=== PATIENT | male | born 1945 | race Caucasian/White ===

== ENCOUNTER 2019-10-30 15:14 | Observation (INO) | payer MEDICARE ==
[2019-10-30 15:54] LABS: #Eosinphils 0.1 thou/uL (0.0-0.7); #Lymphocytes 1.6 thou/uL (1.20-3.40); #Monocytes 0.6 thou/uL (0.11-0.59); #Neutrophils 5.8 thou/uL (1.40-6.50); %Basophils 0.6 % (0.0-1.0); %Eosinophils 1.5 % (0.0-10.0); %Lymphocytes 19.6 % (21.0-51.0); %Monocytes 7.4 % (0.0-10.0); Hemoglobin 12.6 g/dL (14.0-18.0); Mean Corpuscular HGB CONC 36.2 g/dL (32.0-36.0); Mean Corpuscular Hemoglobin 31.7 pg (27.0-31.0); Mean Corpuscular Volume 87.5 fL (78.0-98.0); Mean Platelet Volume 12.5 fL (7.4-10.4); Platelet Count 58 thou/uL (130-400); RBC Distribution Width 12.2 % (11.5-14.5); Red Blood Cell (RBC) Count 3.99 mill/uL (4.70-6.10); White Blood Cell (WBC) Count 8.2 thou/uL (4.8-10.8)
--- NOTE | 2019-10-30 15:54 | CT ---
CT Brain WO Con: 10/30/2019 3:24 PM CLINICAL HISTORY: History of left-sided facial paralysis that started at noon. IMAGING TECHNIQUE: Multiple CT images were obtained of the brain without IV contrast. COMPARISON: None. FINDINGS: Brain: No acute infarct or hemorrhage is evident. No midline shift. Ventricles: Normal. No hydrocephalus. Skull: Intact. Visualized Paranasal sinuses: Clear. Mastoid air cells:Clear. Extracranial soft tissues:Normal. IMPRESSION: No acute intracranial abnormality.
[2019-10-30 16:16] LABS: ALT (SGPT) 14 U/L (8-55); AST (SGOT) 17 U/L (5-34); Albumin 4.7 g/dL (3.4-4.8); Alkaline Phosphatase 75 U/L (40-110); Anion Gap 15 mmol/L (10-20); BUN (Urea Nitrogen) 42 mg/dL (8.4-25.7); Bilirubin, Total 0.6 mg/dL (0.2-1.2); Calc. Creatinine Clearance 0 mL/min (70-130); Calcium 10.2 mg/dL (7.8-10.44); Carbon Dioxide 25 mmol/L (23-31); Chloride 103 mmol/L (98-107); Estimated GFR-MDRD 37; Globulin 3.6 g/dL (2.4-3.5); Glucose 146 mg/dL (83-110); Potassium 5.4 mmol/L (3.5-5.1); Protein, Total 8.3 g/dL (5.8-8.1); Sodium 138 mmol/L (136-145)
--- NOTE | 2019-10-30 16:18 | RAD ---
EXAM: Chest one view: HISTORY: Left-sided facial paralysis COMPARISON: 05/12/2010 FINDINGS: Heart size: Within normal limits. Lungs: Clear of acute process. No evidence for confluent pneumonia, pleural effusion, acute edema, or pneumothorax, or other signifi cant acute process. IMPRESSION: No significant acute intrathoracic disease.
[2019-10-30] MEDS ORDERED: Ondansetron ODT 4 MG TAB SL PRN (20:00)
[2019-10-30] MEDS ORDERED: Ondansetron PF 4 MG/2 ML Vial IVP PRN ×2 (20:00→22:09)
[2019-10-30] MEDS ORDERED: Acetaminophen 325 MG TAB PO PRN ×2 (20:00→22:09)
--- NOTE | 2019-10-30 20:25 | PDOC.FPRHP ---
- History of Present Illness Chief Complaint: Facial droop History of Present Illness: Patient is a 73 yo male with PMHx of HTN, HLD, IDDM, and Colon Cancer in remission who presents with complaint of left facial droop that started at around 1200 on 10/29/2019. Patient states that he was working in his shop and he felt like sawdust entered his left eye. He suddenly noticed that he could not close his left eye and the entire left side of his face felt numb. His right eye has been occasionally tearing. He was able to eat dinner last night and noted that he was drooling a little bit but did not think anything of it. A family member who visited the patient this morning additionally noted that the patient could not smile and that the left side of his face appeared to be drooping, which prompted the patient to come to the hospital for further evaluation. Patient denies any previous history of CVA or TIA. He denies any weakness or numbness in the extremities, although he notes he has dealt with peripheral neuropathy symptoms in his hands and feet since 2010. He says he was told it was a part of the side effects from a chemotherapy he received for his colon cancer from [id number]. Patient additionally complains of some intermittent chest pain for last several weeks. He is unable to characterize the pain, stating that it is the upper left chest and goes straight through into his chest. It hurts sometimes when he presses that area but not currently. Currently not having any chest pain. ED Course: No medications given in ED. Troponin neg. CXR with no acute process. CT head negative. Labs revealed Na 138, K 5.4, BUN 42, Cr 1.81, GFR 37, Hgb 12.6 - Allergies/Adverse Reactions Allergies Allergy/AdvReac Type Severity Reaction Status Date / Time No Known Allergies Allergy Verified 10/30/19 20:19 - Home Medications Medication Instructions Recorded Confirmed Type Amlodipine Besylate [amLODIPine 10 mg PO HS 09/06/16 10/30/19 History Besylate] Atorvastatin Calcium 80 tab PO HS 09/06/16 10/30/19 History Cyanocobalamin (Vitamin B-12) 1,000 mcg PO DAILY 09/06/16 10/30/19 History [Vitamin B-12] Gabapentin 400 mg PO TID 09/06/16 10/30/19 History Hydrochlorothiazide 25 mg PO DAILY 09/06/16 10/30/19 History Insulin Detemir 100 UNITS/ML 95 unit SQ QAM 09/06/16 10/30/19 History [Levemir] Lisinopril 40 mg PO DAILY 09/06/16 10/30/19 History Insulin Detemir 100 UNITS/ML 65 units SQ QPM 04/26/17 10/30/19 History [Levemir] Alogliptin 12.5 mg PO DAILY 10/30/19 10/30/19 History Multivit-Minerals/Folic Acid 3 tab PO DAILY 10/30/19 10/30/19 History [Adult Multi Gummies] [place]-3S/DHA/EPA/Fish Oil/D3 1 drop PO BID 10/30/19 10/30/19 History [[place] Essentials Liquid] metFORMIN [Glucophage] 500 mg PO BID 10/30/19 10/30/19 History - History PMHx: HTN, HLN, IDDM, Colon Cancer (2009, 2016), Depression, Sarcoidosis PSHx: Colectomy in 2009, 2016; Hernia repair FHx: CAD, DM, RA Social: smokes 2 cigars/day - Review of Systems General: denies: fever/chills, weight/appetite/sleep changes, fatigue Eyes: reports: vision changes (blurry vision left eye) ENT: denies: nasal congestion Respiratory: denies: cough, congestion, shortness of breath Cardiovascular: denies: chest pain, palpitation, edema Gastrointestinal: denies: nausea, vomiting, diarrhea, constipation, abdominal pain Genitourinary: denies: dysuria Skin: denies: rashes, lesions, itching Musculoskeletal: denies: pain, swelling Neurological: reports: numbness. denies: syncope, weakness - Vital signs BP: 183/81 HR: 95 RR: 16 Tmax: 98.5F Pox: 98% on RA Wt: 87 kg - Physical Exam Constitutional: NAD, awake, alert and oriented, well developed HEENT: normocephalic and atraumatic, EOMI, conjunctiva clear, no scleral icterus , grossly normal vision, grossly normal hearing, MMM -HEENT: left eye open, patient unable to close eye tearing present from left eye horizontal nystagmus present to both left and right unable to raise left eye brow face generally appears asymmetrical with left side drooping. When smiling the left side of the face does not move. Disappearance of wrinkles on left forehead. No apparent rashes or lesions. Gross sensation to pressure intact bilateral face. Neck: supple Chest: no-tender to palpation, no lesions Heart: RRR, normal S1/S2, no murmurs/rubs/gallops, pulses present, no edema Lungs: CTAB, no respiratory distress, good air movement, no rales/rhonchi, no wheezing Abdomen: soft, non-tender, bowel sounds present Musculoskeletal: normal structure, normal tone, ROM grossly normal -Neurological: see HEENT exam above. Strength 5/5 in extremities. Gross sensation intact to light and deep touch. Skin: no rash/lesions, good turgor Heme/Lymphatic: no unusual bruising or bleeding Psychiatric: normal mood and affect, intact recent and remote memory FMR H&P: Results - Labs Result Diagrams: 10/31/19 04:16 10/31/19 04:16 Lab results: WBC 8.2 thou/uL (4.8-10.8) 10/30/19 15:31 Hgb 12.6 g/dL (14.0-18.0) L 10/30/19 15:31 Hct 34.9 % (42.0-52.0) L 10/30/19 15:31 MCV 87.5 fL (78.0-98.0) 10/30/19 15:31 Plt Count 58 thou/uL (130-400) L 10/30/19 15:31 Neutrophils % 71.0 % (42.0-75.0) 10/30/19 15:31 Sodium 138 mmol/L (136-145) 10/30/19 15:30 Potassium 5.4 mmol/L (3.5-5.1) H 10/30/19 15:30 Chloride 103 mmol/L (98-107) 10/30/19 15:30 Carbon Dioxide 25 mmol/L (23-31) 10/30/19 15:30 BUN 42 mg/dL (8.4-25.7) H 10/30/19 15:30 Creatinine 1.81 mg/dL (0.7-1.3) H 10/30/19 15:30 Glucose 146 mg/dL (83-110) H 10/30/19 15:30 Calcium 10.2 mg/dL (7.8-10.44) 10/30/19 15:30 Total Bilirubin 0.6 mg/dL (0.2-1.2) 10/30/19 15:30 AST 17 U/L (5-34) 10/30/19 15:30 ALT 14 U/L (8-55) 10/30/19 15:30 Alkaline Phosphatase 75 U/L (40-110) 10/30/19 15:30 Serum Total Protein 8.3 g/dL (5.8-8.1) H 10/30/19 15:30 Albumin 4.7 g/dL (3.4-4.8) 10/30/19 15:30 FMR H&P: A/P - Problem List (1) Ricketts's palsy Current Visit: Yes Status: Acute Code(s): G51.0 - RICKETTS'S PALSY (2) Acute kidney injury superimposed on CKD Current Visit: Yes Status: Acute Code(s): N17.9 - ACUTE KIDNEY FAILURE, UNSPECIFIED; N18.9 - CHRONIC KIDNEY DISEASE, UNSPECIFIED (3) Anemia Current Visit: Yes Status: Chronic Code(s): D64.9 - ANEMIA, UNSPECIFIED Qualifiers: Anemia type: unspecified type Qualified Code(s): D64.9 - Anemia, unspecified (4) Hyperkalemia Current Visit: Yes Status: Acute Code(s): E87.5 - HYPERKALEMIA (5) Peripheral neuropathy Current Visit: Yes Status: Chronic Code(s): G62.9 - POLYNEUROPATHY, UNSPECIFIED Qualifiers: 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 Qualified Code(s): G62.2 - Polyneuropathy due to other toxic agents (6) Hypertension Current Visit: Yes Status: Chronic Code(s): I10 - ESSENTIAL (PRIMARY) HYPERTENSION Qualifiers: Hypertension type: unspecified Qualified Code(s): I10 - Essential (primary ) hypertension - Plan Patient is a 73 yo male who presents with left facial droop: #Ricketts's Palsy, suspected -high suspicion for Ricketts's palsy given involvement of entire left side of face including forehead, visible asymmetry on initial exam with unable to close left eye -will need to r/o CVA given risk factors of HLD, DM, HTN, smoking -CT head negative, will obtain MRI in AM -House-Brackmann classification of severe dysfunction for Ricketts's Palsy -will start Prednisone 80 mg/day, will need 7 day course -start Valacyclovir 1000 mg/day, will need 7 day course -artificial tear eye drops TID and eye gel at bedtime #Atypical Chest Pain -low suspicion for cardiac origin at this time -not reproducible on exam -Troponin 0.01 -EKG in ER NSR with no ST changes -HEART score of 4 for >3 risk factors and age -consider outpatient stress test #Hypertension -continue home meds #Hyperkalemia -initial K 5.4, will continue to monitor -repeat CMP in AM #Peripheral Neuropathy -aware, longstanding numbness in hands & feet that started after chemotherapy treatments in 2010 -continue home meds #IDDM -continue home insulin -place on SSI while in hospital -diabetes hyperglycemia protocol in place #HLD -continue home meds Diet: Heart Healthy VTE: SCDs, Lovenox 30 Code status: FULL Dispo: Stable, admit to observation on stroke unit. Continue to monitor, start on steroids and valacyclovir. MRI in AM. Anticipate LOS <48 hrs. FMR H&P: Upper Level - Plan Date/Time: 10/30/192024 IHeidi DO, have evaluated this patient and agree with findings/plan as outlined by purchasing intern resident. Pertinent changes/additions are listed here. Pt is a 73 yo M/F with PMH of DM, neuropathy, umbilical hernia, hx of colon cancer, HTN, tobacco use (1-2cigars per day) presenting for L eye droop and L facial droop with difficulty spitting and associated L facial numbness, onset 1200 yesterday. Also noticed some tinglining in R arm, but reports it happens occasionally so he didn't think anything of it. Denies slurred speech, weakness , confusion. Reports some L substernal CP that radiates to L shoulder blade over the last couple days. Currently not present. Dull ache that is intermittent, not associated with exertion. Denies SOB, syncope, palpitations. VS: 143/71, P79, R20, T98.3, 97%RA PE: Gen: well developed, NAD HEENT: Moist MM, no LAD, no JVD, otoscopic exam wnl b/l- TM clear with good cone Heart: RRR, no murmurs or extra sounds. Distal pulses 2+ Lungs: CTAB, no wheezing. No increased work of breathing Abd: soft, nontender, BS+, ventral hernia present- reducible Ext: no cyanosis or edema Neuro: L sided facial droop of lip, eyelid, and eyebrow, loss of wrinkles of L forehead, inability to close L eye, no tongue deviation, UE and LE sensation intact, UE and LE strength 5/5 Skin: no rashes or wounds present Psych: AOx3, normal mood Pertinent Labs/Imaging: H/H: 12.9/34.9, Plt 58, MCV [address]: no acute findings EKG: NSR, no ST changes, Left [place] Deviation A/P: CVA vs [place] Palsy -Likely [place] Palsy based off exam. House Brackmann V, will give Prednisone and Valacyclovir. -MRI tomorrow -Permissive HTN x24h -FLP, continue daily ASA. Normocytic Anemia: -Chronic, stable from previous admissions Thrombocytopenia: -has seen oncologist at [place] for this. Reports normally below 50. -continue to monitor daily, hold anticoagulation for Plt <40 -Ramu score 5 Hyperkalemia: -has hx of this 2/2 eating too many bananas. -Will give home dose insulin and recheck in AM. -EKG wnl Atypical CP: -EKG and trop wnl -no current CP -likely needs outpatient workup SAUL vs CKD: -unk to him. -FeNa pending See purchasing intern note for chronic medical conditions. DVT PPx: Lovenox GI PPx: Pepcid Code status: Full PCP: Dr. Reid Lo at the [facility] Addendum - Attending - Attending Attestation Date/Time: 10/31/19 [id number] I personally evaluated the patient and discussed the management with Dr. Carvalho and Aguilar. I agree with the History, Examination, Assessment and Plan documented above with any addition or exceptions noted below.
[2019-10-30 20:37] VITALS: BMI 26.0
[2019-10-30] MEDS ORDERED: Calcium Carbonate 500 MG ChewTAB PO PRN (22:09)
[2019-10-30] MEDS ORDERED: Senokot S 8.6-50 MG TAB PO PRN (22:09)
[2019-10-30] MEDS ORDERED: Ondansetron ODT 4 MG TAB PO PRN (22:09)
[2019-10-30] MEDS ORDERED: Artificial Tear Sol 15 ML BOT EA EYE PRN (22:22)
[2019-10-30] MEDS ORDERED: Dextrose 50% Abboject 50 ML SYRINGE SLOW IVP PRN (23:10)
[2019-10-30] MEDS ORDERED: HumaLOG 300 UNITS/3 ML VIAL SC PRN ×2 (23:10)
[2019-10-30] MEDS ORDERED: Dextrose 5% in Water 1,000 ML IV PRN (23:10)
[2019-10-31] MEDS ORDERED: Nitroglycerin 0.4 MG TAB (25 Tab Bottle) SL PRN (03:37)
[2019-10-31] MEDS ORDERED: Calcium Gluconate 4.6 MEQ in Sodium Chloride 0.9% 100 ML IVPB SCH (04:15)
[2019-10-31] MEDS ORDERED: HumaLOG 300 UNITS/3 ML VIAL SC SCH (04:15)
[2019-10-31 04:21] LABS: Creatinine, Urine 62.66 mg/dL (63-166)
[2019-10-31] MEDS ORDERED: Dextrose 50% Abboject 50 ML SYRINGE SLOW IVP SCH (04:30)
[2019-10-31 04:53] LABS: Troponin I Less than 0.010 ng/mL (< 0.028)
[2019-10-31 04:58] LABS: #Basophils 0.1 thou/uL (0.0-0.2); #Eosinphils 0.2 thou/uL (0.0-0.7); #Lymphocytes 1.3 thou/uL (1.20-3.40); #Monocytes 0.7 thou/uL (0.11-0.59); %Basophils 0.7 % (0.0-1.0); %Eosinophils 2.6 % (0.0-10.0); %Lymphocytes 18.4 % (21.0-51.0); %Neutrophils 68.3 % (42.0-75.0); ALT (SGPT) 13 U/L (8-55); AST (SGOT) 15 U/L (5-34); Albumin 4.3 g/dL (3.4-4.8); Alkaline Phosphatase 69 U/L (40-110); Anion Gap 13 mmol/L (10-20); BUN (Urea Nitrogen) 40 mg/dL (8.4-25.7); Bilirubin, Total 0.7 mg/dL (0.2-1.2); Calc. Creatinine Clearance 51 mL/min (70-130); Calcium 9.9 mg/dL (7.8-10.44); Carbon Dioxide 26 mmol/L (23-31); Cardiac Risk 18.1 (Less than 4.5); Chloride 103 mmol/L (98-107); Cholesterol 490 mg/dl (< 200 Desired); Estimated GFR-MDRD 43; Globulin 2.9 g/dL (2.4-3.5); Glucose 168 mg/dL (83-110); HDL Cholesterol 27 mg/dL (>60 Neg Risk); Hemoglobin 11.9 g/dL (14.0-18.0); Mean Corpuscular Hemoglobin 30.1 pg (27.0-31.0); Mean Corpuscular Volume 88.6 fL (78.0-98.0); Mean Platelet Volume 12.3 fL (7.4-10.4); Platelet Count 47 thou/uL (130-400); Potassium 5.3 mmol/L (3.5-5.1); Protein, Total 7.2 g/dL (5.8-8.1); RBC Distribution Width 12.3 % (11.5-14.5); Red Blood Cell (RBC) Count 3.94 mill/uL (4.70-6.10); Sodium 137 mmol/L (136-145); White Blood Cell (WBC) Count 7.3 thou/uL (4.8-10.8)
[2019-10-31 05:06] LABS: Triglycerides 1596 mg/dL (Less than 150)
--- NOTE | 2019-10-31 05:25 | PDOC.FM ---
- Subjective Subjective: Patient doing well this morning. Reports slightly improved movement of his face. He is able to close his left eye, but not easily. Sensation is intact throughout his face. Regarding his high triglycerides/cholesterol: patient denies knowing of any family hx of HLD; reports his mother passed of an SC. He does eat fast food often, though when he is home alone he reports he cooks chicken and vegetables. Patient was counseled on smoking cessation, and he states he lives alone and smoking his cigars are one of the only "pleasures" of his life. - Objective Vital Signs & Weight: Vital Signs (12 hours) Temp Pulse Resp BP BP Pulse Ox 10/31/19 03:15 97.9 F 61 18 138/66 97 10/30/19 23:37 97.6 F 66 18 145/71 H 98 10/30/19 19:07 97.6 F 72 18 165/78 H 97 Weight Weight 87.18 kg Result Diagrams: 10/31/19 04:16 10/31/19 04:16 EKG Reviewed by me: Yes (sinus 60s-80s) Phys Exam - Physical Examination Constitutional: NAD HEENT: moist MMs, sclera anicteric decreased mobility of left nostril; slight left lip droop Neck: supple, full ROM Respiratory: no wheezing, clear to auscultation bilateral Cardiovascular: RRR, no significant murmur Gastrointestinal: soft, non-tender Musculoskeletal: no edema, pulses present Neurological: moves all 4 limbs see HEENT Lymphatic: no nodes Psychiatric: normal affect, A&O x 3 Skin: no rash, normal turgor Dx/Plan (1) Thrombocytopenia Code(s): D69.6 - THROMBOCYTOPENIA, UNSPECIFIED Status: Chronic (2) Acute kidney injury superimposed on CKD Code(s): N17.9 - ACUTE KIDNEY FAILURE, UNSPECIFIED; N18.9 - CHRONIC KIDNEY DISEASE, UNSPECIFIED Status: Acute (3) Anemia Code(s): D64.9 - ANEMIA, UNSPECIFIED Status: Chronic Qualifiers: Anemia type: unspecified type Qualified Code(s): D64.9 - Anemia, unspecified (4) Ricketts's palsy Code(s): G51.0 - RICKETTS'S PALSY Status: Acute (5) Hyperkalemia Code(s): E87.5 - HYPERKALEMIA Status: Acute (6) Hypertension Code(s): I10 - ESSENTIAL (PRIMARY) HYPERTENSION Status: Chronic Qualifiers: Hypertension type: unspecified Qualified Code(s): I10 - Essential (primary ) hypertension (7) Peripheral neuropathy Code(s): G62.9 - POLYNEUROPATHY, UNSPECIFIED Status: Chronic Qualifiers: 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 Qualified Code(s): G62.2 - Polyneuropathy due to other toxic agents - Plan Plan: Patient is a 73 yo male who presents with left facial droop: #Ricketts's Palsy, suspected -likely 2/2 involvement of entire left side of face including forehead, visible asymmetry on initial exam with unable to close left eye -symptoms improved somewhat today, will ability to close left eye; continues to have decreased movement of left nostril and slight left mouth droop -will also r/o CVA given risk factors of HLD, DM, HTN, smoking -triglycerides 1596, total chol 490, calculated LDL 144 -continue home statin and add fenofibrate -CT head negative, MRI pending -House-Brackmann classification of severe dysfunction for Ricketts's Palsy -started on Prednisone 80 mg/day, will need 7 day course -started on Valacyclovir 1000 mg/day, will need 7 day course -artificial tear eye drops TID and eye gel at bedtime #Atypical Chest Pain -low suspicion for cardiac origin at this time -reproducible on exam -Troponin 0.01, < 0.01 -EKG in ER NSR with no ST changes -HEART score of 4 for >3 risk factors and age -consider outpatient stress test #Hypertension -continue home meds #Hyperkalemia -initial K 5.4, 5.3 this am though patient did not receive home insulin -continue home insulin -noon BMP pending #Thrombocytopenia -has seen oncologist in [place] for this reportedly -will hold anticoagulation for platelets <40 #Peripheral Neuropathy -aware, longstanding numbness in hands & feet that started after chemotherapy treatments in 2010 -continue home meds #IDDM -continue home insulin -place on SSI while in hospital -diabetes hyperglycemia protocol in place #HLD -continue home meds -adding fenofibrate for hypertriglyceridemia Diet: Heart Healthy VTE: SCDs, Lovenox 30 Code status: FULL PCP:[facility] Dispo: Stable, admitted to observation on stroke unit. Started on on steroids and valacyclovir. MRI pending.
[2019-10-31] MEDS ORDERED: Fenofibrate 48 MG TAB PO SCH (08:00)
[2019-10-31] MEDS ORDERED: Lorazepam 1 MG TAB PO SCH (08:30)
[2019-10-31] MEDS ORDERED: Insulin Glargine 50 UNITS in Pre-Filled Syringe 1 EACH SC SCH (09:00)
[2019-10-31] MEDS ORDERED: valACYclovir 500 MG TAB PO SCH (09:00)
[2019-10-31] MEDS ORDERED: Hydrochlorothiazide 25 MG TAB PO SCH (09:00)
[2019-10-31] MEDS ORDERED: FISH OIL PO SCH (09:00)
[2019-10-31] MEDS ORDERED: Gabapentin 400 MG CAP PO SCH (09:00)
[2019-10-31] MEDS ORDERED: INSULIN DETEMIR SQ SCH (09:00)
[2019-10-31] MEDS ORDERED: DHA PO SCH (09:00)
[2019-10-31] MEDS ORDERED: EPA PO SCH (09:00)
[2019-10-31] MEDS ORDERED: predniSONE 20 MG TAB PO SCH (09:00)
[2019-10-31] MEDS ORDERED: OMEGA PO SCH (09:00)
[2019-10-31] MEDS ORDERED: Alogliptin 25 MG TAB PO SCH (09:00)
[2019-10-31] MEDS ORDERED: Insulin Glargine 45 UNITS in Pre-Filled Syringe 1 EACH SC SCH (09:00)
[2019-10-31] MEDS ORDERED: Insulin Glargine 95 UNITS in Pre-Filled Syringe 1 EACH SC SCH (09:00)
[2019-10-31] MEDS ORDERED: Fish Oil 1,000 MG CAP PO SCH (09:00)
[2019-10-31] MEDS ORDERED: Multivitamins CHEW w/Iron Tablet PO SCH (09:00)
[2019-10-31] MEDS ORDERED: metFORMIN 500 MG TAB PO SCH (09:00)
[2019-10-31] MEDS ORDERED: Lisinopril 20 MG TAB PO SCH (09:00)
[2019-10-31] MEDS ORDERED: D3 PO SCH (09:00)
[2019-10-31] MEDS ORDERED: Cyanocobalamin (Vitamin B-12) 1,000 MCG TAB PO SCH (09:00)
[2019-10-31] MEDS: Enoxaparin Sodium 30 MG/0.3 ML SYRINGE SC SCH ×2 (09:51→10:36)
[2019-10-31 10:36] LABS: Hemoglobin A1c 8.9 % (4.0-6.0)
[2019-10-31 11:14] LABS: Syphilis Antibody Nonreactive (Nonreactive); Syphilis Antibody Index 0.04 S/CO (<1.00 Non-Reactive)
[2019-10-31 11:15] LABS: HIV (1/2) Antibody/Antigen Non-Reactive (NonReactive); HIV 1/2 INDEX 0.07 S/CO (<1.00)
[2019-10-31 11:42] VITALS: BP 132/65; TEMP 98.1
--- NOTE | 2019-10-31 12:12 | MRI ---
MRI BRAIN WITH AND WITHOUT IV CONTRAST: Date: 10/31/2019 HISTORY: Left-sided facial droop. TIA versus CVA. FINDINGS: Correlation is made with the previous day's CT scan. No restricted diffusion is seen. There is a small area of gliosis in the left anteromedial frontal lo be. There are multiple foci of T2 prolongation in the periventricular white matter consistent with ch ronic small vessel ischemic disease. No evidence of acute infarct, hemorrhage, mass, midline shift, o r abnormal extra-axial fluid collections are seen. No abnormal postcontrast enhancement is noted. The visualized paranasal sinuses and mastoid air cells are well aerated. IMPRESSION: No evidence of acute intracranial process or mass. POS: [facility]
[2019-10-31 12:20] LABS: Anion Gap 13 mmol/L (10-20); BUN (Urea Nitrogen) 34 mg/dL (8.4-25.7); Calc. Creatinine Clearance 54 mL/min (70-130); Calcium 10.4 mg/dL (7.8-10.44); Carbon Dioxide 26 mmol/L (23-31); Chloride 101 mmol/L (98-107); Estimated GFR-MDRD 46; Glucose 169 mg/dL (83-110); Potassium 5.1 mmol/L (3.5-5.1); Sodium 135 mmol/L (136-145)
[2019-10-31] MEDS ORDERED: Non-Formulary Item 1 EACH (Insulin Detemir 100 Units/Ml [Levemir] 65 UNITS) SQ SCH (21:00)
[2019-10-31] MEDS ORDERED: Insulin Glargine 65 UNITS in Pre-Filled Syringe 1 EACH SC SCH (21:00)
[2019-10-31] MEDS ORDERED: Amlodipine 10 MG TAB PO SCH (21:00)
[2019-10-31] MEDS ORDERED: Atorvastatin Calcium 40 MG TAB PO SCH (21:00)
--- NOTE | 2019-11-01 07:28 | PRG ---
DATE OF SERVICE: 10/31/2019 ADDENDUM: This is an addendum to the note of Dr. Penelope Colon. Mr. Jack is a 74-year-old white male patient who was admitted with a left facial weakness involving the entire left face. His H and P were consistent with Barrera palsy and he has been started on prednisone and acyclovir. Because he has numerous risk factors, we are getting an MRI to be certain that he has not had a stroke, but this appears to be Barrera palsy. If his MRI is negative for stroke, we can likely discharge him later this afternoon. In the event, he seems to be improving somewhat from his left facial weakness, although he still has residual weakness. Neuro exam is otherwise without focal deficits other than the facial nerve. Job ID: [id number]
--- NOTE | 2019-11-01 08:26 | EKG ---
Test Reason : STAT Blood Pressure : / mmHG Vent. Rate : 061 BPM Atrial Rate : 061 BPM P-R Int : 138 ms QRS Dur : 092 ms QT Int : 390 ms P-R-T Axes : 018 -15 021 degrees QTc Int : 392 ms Normal sinus rhythm Normal ECG When compared with ECG of 13-APR-2017 12:00, No significant change was found Confirmed by DR. Hanh LEI ([id number]) on 11/01/2019 8:26:48 AM Referred By: ÓSCAR Confirmed By:DR. Hanh LEI
--- NOTE | 2019-11-01 14:50 | DIS ---
DATE OF ADMISSION: 10/30/2019 DATE OF DISCHARGE: 10/31/2019 ADMITTING RESIDENT: Shaunna Sheikh DO ADMITTING ATTENDING: Alon Talley MD DISCHARGE RESIDENT: Penelope Colon MD. DISCHARGE ATTENDING: Mihcael Patel MD. CONSULTS: Speech. PROCEDURES: None. IMAGIN. Brain CT: No acute intracranial abnormality. 2. Chest x-ray: No significant acute intrathoracic disease. 3. Brain MRI: No evidence of acute intracranial process or mass. PRIMARY DIAGNOSES: Effective Barrera's palsy, atypical chest pain, low triglyceridemia, thrombocytopenia. SECONDARY DIAGNOSES: 1. Hypertension. 2. Hyperkalemia. 3. Peripheral neuropathy. 4. Insulin-dependent diabetes mellitus. 5. Hyperlipidemia. DISCHARGE MEDICATIONS: 1. 12.5 mg alogliptin p.o. daily. 2. 10 mg amlodipine p.o. at bedtime. 3. 1 gm Artificial Tears each eye at bedtime. 4. 80 mg atorvastatin p.o. at bedtime. 5. 1000 mcg of vitamin B12 daily. 6. 40 mg TriCor p.o. q.a.m. 7. 100 mg gabapentin p.o. t.i.d. 8. 25 mg of hydrochlorothiazide p.o. daily. 9. 55 units Levemir subcu q.p.m. 10. 95 units Levemir subcu q.a.m. 11. 40 mg lisinopril p.o. daily. 12. 500 mg metformin p.o. b.i.d. 13. Adult Gummies daily. 14. 4 g Lovaza p.o. daily. 15. 1 [place] Essentials Liquid and drop p.o. b.i.d. 16. Prednisone taper 50 mg p.o. b.i.d. x2 days, 40 mg p.o. daily x2 days, 20 mg p.o. daily x2 days, 10 mg p.o. daily x2 days, 5 mg p.o. daily x1 day. 17. 1000 mg of Valtrex p.o. t.i.d. DISCONTINUED MEDICATIONS: 1. Tylenol p.r.n. 2. Calcium carbonate. 3. Lovenox. 4. Fish oil 1000 mg. 5. Sliding scale insulin. 6. Ativan. 7. Nitroglycerin. 8. Zofran p.r.n. 9. Senokot. HISTORY OF PRESENT ILLNESS/HOSPITAL COURSE: The patient is a 74-year-old male with a past medical history of hyperlipidemia, hypertension, insulin-dependent diabetes, colon cancer, in remission that presented to the ED with a chief complaint of left facial droop, this started around 12 noon on the day before admission. He noted that he was unable to close his left eye and the entire part of his left face was numb. He was also noted to drool out of the left side of the mouth. He did deny any weakness or numbness in the extremities or any other symptoms throughout. In the ED, he had CT scan, see above. He was admitted for a CVA versus TIA versus Barrera's palsy workup. On physical exam, the patient was noted to have deficiencies throughout the entire left side of his face including his forehead , so it was thought this patient likely had Barrera's palsy and was started on a prednisone taper and started on acyclovir. He was also given Artificial tear drops for his left eye. He was found to have triglycerides of 1596 and total cholesterol 490. He does take atorvastatin at home and so he was started on lovaza outpatient. During the admission, the patient had a brain MRI, see above. CVA was ruled out. The patient was found to be more likely to have Barrera's palsy and this was explained to him, and he was started on prednisone and acyclovir which he was instructed to follow a course outpatient. The patient also had atypical chest pain on admission and his trops were trended and were negative. It was suggested the patient that he be considered for an outpatient stress test, which the patient was agreeable. The patient was hyperkalemic on admission with a potassium of 5.4 that trended down throughout his admission with a final potassium of 5.1 within the normal range. The patient was evaluated on the day of discharge and found to be in stable condition. His home medications were continued and he was sent home with a script for continuation of the prednisone taper as well as acyclovir and lovaza. He is instructed to follow up with his primary care physician. DISPOSITION: Stable. DISCHARGE INSTRUCTIONS: 1. Location: Home. 2. Diet: Heart healthy, diabetic diet. 3. Activity: As tolerated. 4. Follow up with PCP within 7 days. Job ID: [id number] HEALTH SYSTEMMatthew
== END 2019-10-31 14:15 | disposition home or self-care (01) ==
LOC: ERS 15:14 → 2SE 17:19
PROVIDERS: ADMIT Emergency Medicine; ATTEND Emergency Medicine
DX: G51.0 Bell's palsy (principal); R07.89 Other chest pain; D69.6 Thrombocytopenia, unspecified; I12.9 Hypertensive chronic kidney disease with stage 1 through stage 4 chronic kidney disease, or unspecified chronic kidney disease; E11.22 Type 2 diabetes mellitus with diabetic chronic kidney disease; E11.42 Type 2 diabetes mellitus with diabetic polyneuropathy; N18.9 Chronic kidney disease, unspecified; D63.1 Anemia in chronic kidney disease; N17.9 Acute kidney failure, unspecified; E78.5 Hyperlipidemia, unspecified; C18.9 Malignant neoplasm of colon, unspecified; Z79.4 Long term (current) use of insulin; Z79.899 Other long term (current) drug therapy; F17.210 Nicotine dependence, cigarettes, uncomplicated
CPT/HCPCS: 70450; 70553; 71045; 80048; 80053; 80061; 82570; 82962 ×2; 83036; 84300; 84484 ×2; 85025; 86780; 87389; 87521; 93005 ×2; 94760; 96374; 96375; 97139 ×3; 99285; G0378 ×3; 36415; 36416; 84443; 93010; J1650; J1815; J3490; J7512

== ENCOUNTER 2020-06-06 10:35 | Day surgery (SDC) | payer MEDICARE ==
[2020-06-05 15:08] VITALS: BMI 25.9
[2020-06-06] MEDS ORDERED: Ketorolac Tromethamine 30 MG/ML VIAL ONE (10:58)
[2020-06-06] MEDS ORDERED: PHENYLEPHRINE-NS 100 MCG/ML 10 ML SYRINGE ONE (10:58)
[2020-06-06] MEDS ORDERED: Metoclopramide HCl 10 MG/2 ML VIAL ONE (10:58)
[2020-06-06] MEDS ORDERED: EPHEDRINE 25 MG/5 ML SYRINGE ONE (10:58)
[2020-06-06] MEDS ORDERED: PROPOFOL 200 MG/20 ML VIAL ONE (10:58)
[2020-06-06] MEDS ORDERED: Lidocaine 1% PF 5 ML VIAL ONE (10:58)
[2020-06-06] MEDS ORDERED: Ondansetron PF 4 MG/2 ML Vial ONE (10:58)
[2020-06-06] MEDS ORDERED: Rocuronium Bromide 10 MG/ML (10ML VIAL) ONE (10:58)
[2020-06-06] MEDS ORDERED: cefOXitin Sodium/Dextrose 2 GM/50 ML BAG ONE (11:05)
[2020-06-06] MEDS ORDERED: Fentanyl 100 MCG/2 ML VIAL ONE ×2 (12:01→14:20)
[2020-06-06] MEDS ORDERED: Bupivacaine/Epinephrine 0.25% 30 ML VIAL ONE (12:01)
[2020-06-06] MEDS ORDERED: Famotidine/PF 20 mg/2ml Vial ONE (12:01)
[2020-06-06] MEDS ORDERED: SUGAMMADEX SODIUM 200 MG/2 ML VIAL ONE (12:02)
[2020-06-06] MEDS ORDERED: HYDROcodone/Acetaminophen 5/325 mg Tablet ONE (15:22)
--- NOTE | 2020-06-06 19:55 | OP ---
DATE OF PROCEDURE: 06/06/2020 PREOPERATIVE DIAGNOSIS: Acute cholecystitis. POSTOPERATIVE DIAGNOSIS: Acute cholecystitis. PROCEDURE PERFORMED: Laparoscopic cholecystectomy. ANESTHESIA: General. ESTIMATED BLOOD LOSS: Minimal. COMPLICATIONS: None. SPECIMEN: Gallbladder. FINDINGS: Cholecystitis and severe intraabdominal adhesions. DESCRIPTION OF PROCEDURE: The patient was taken to the operating room and laid supine on the operating room table. After general anesthetic was obtained, the abdomen was shaved, prepped, and draped in a sterile fashion. Left subcostal 5-mm Optiview trocar placed and high-flow pneumoperitoneum was obtained. Multiple abdominal wall adhesions and incision were made on the left lateral abdomen and an additional 5 port was placed. All adhesions were taken down carefully sharply. No injury to any intraabdominal structures. This allowed for the more traditional other three top incisions to be placed and a 12 mm port to be placed at the umbilicus. Gallbladder was retracted from the gallbladder fossa. There was severe omental adhesions to it as well. These were all taken down using LigaSure cystic duct and cystic artery allowed delineation of these structures. A critical view triangle was seen showing only the cystic duct and cystic artery branching from medial to lateral. No other branching structures. Two clips were placed proximally and one distally in the cystic duct. It was cut using laparoscopic scissors. Cystic artery was taken in the same way. Cautery was used to dissect the gallbladder out of the gallbladder fossa. The gallbladder was placed in EndoCatch bag and brought out through the 12 mm trocar site. This fascial defect was closed using GraNee needle Vicryl tie. All port sites were infiltrated using local anesthetic and removed under direct visualization without bleeding. All incisions were closed using 4-0 Monocryl and Dermabond. The patient was sent to Recovery in stable condition. All instrument counts, needle counts, and lap counts are correct. Job ID: [id number]
--- NOTE | 2020-06-08 08:56 | EKG ---
Test Reason : PREOP Blood Pressure : / mmHG Vent. Rate : 065 BPM Atrial Rate : 065 BPM P-R Int : 136 ms QRS Dur : 098 ms QT Int : 392 ms P-R-T Axes : 027 -14 026 degrees QTc Int : 407 ms Normal sinus rhythm Normal ECG No previous ECGs available Confirmed by DR. Spring MALDONADO ([id number]) on 06/08/2020 8:56:31 AM Referred By: SAV Confirmed By:DR. Spring MALDONADO
== END 2020-06-06 17:10 | disposition home or self-care (01) ==
LOC: SDC 10:35
PROVIDERS: ATTEND Surgery
PROC: 0FT44ZZ Resection of Gallbladder, Percutaneous Endoscopic Approach (ICD-10-PCS; principal; 2020-06-06)
DX: K81.2 Acute cholecystitis with chronic cholecystitis (principal); K66.0 Peritoneal adhesions (postprocedural) (postinfection); I10 Essential (primary) hypertension; E11.9 Type 2 diabetes mellitus without complications; D86.9 Sarcoidosis, unspecified; F17.200 Nicotine dependence, unspecified, uncomplicated; Z85.038 Personal history of other malignant neoplasm of large intestine; Z79.4 Long term (current) use of insulin; Z79.82 Long term (current) use of aspirin; Z79.899 Other long term (current) drug therapy; Z90.49 Acquired absence of other specified parts of digestive tract
CPT/HCPCS: 36416; 88304; 93005; 93010; J0694; J1885; J2405; J2704; J2765; J3010; S0028

== ENCOUNTER 2022-02-03 12:39 | Emergency (ER) | payer OTHER, MEDICARE | END 2022-02-03 15:40 | disposition home or self-care (01) | LOC: ERS 12:39 | DX: S06.9X9A Unspecified intracranial injury with loss of consciousness of unspecified duration, initial encounter (principal); E11.649 Type 2 diabetes mellitus with hypoglycemia without coma; I10 Essential (primary) hypertension; E78.5 Hyperlipidemia, unspecified; F17.210 Nicotine dependence, cigarettes, uncomplicated; V48.0XXA Car driver injured in noncollision transport accident in nontraffic accident, initial encounter; Z79.4 Long term (current) use of insulin | CPT/HCPCS: 36416; 70450; 93005 ==